=== PATIENT | female | born 1980 | race Caucasian/White ===

== ENCOUNTER 2018-06-28 12:36 | Emergency (ER) | payer BC ==
[2018-06-28] MEDS ORDERED: Sodium Chloride 0.9% 10 ML Syringe FLUSH PRN (13:07)
[2018-06-28] MEDS ORDERED: Sodium Chloride 0.9% 1,000 ML IV ONE (13:07)
[2018-06-28] MEDS ORDERED: Sodium Chloride 0.9% 2.5 ML Syringe FLUSH PRN (13:07)
[2018-06-28] MEDS ORDERED: Ketorolac 30 MG/ML SDV IVPUSH ONE (13:07)
[2018-06-28] MEDS ORDERED: Ondansetron 4 MG/2 ML SDV IVPUSH ONE (13:07)
--- NOTE | 2018-06-28 13:10 | EDM.PDOC ---
ED HPI GENERAL MEDICAL PROBLEM - General Chief Complaint: Back Pain or Injury Stated Complaint: PAIN IN BACK Time Seen by Provider: 06/28/18 12:55 Source of Information: Reports: Patient History Limitations: Reports: No Limitations - History of Present Illness INITIAL COMMENTS - FREE TEXT/NARRATIVE: History of present illness: []Patient has had 3 days of left-sided flank and upper abdominal pain. No fevers , chills, nausea or vomiting. She denies blood in her urine or diarrhea. She also denies being . Patient had similar pain on the opposite side years ago that was a kidney stone but notes the pain was much lower. Has no history of pancreatitis or diverticulitis. Patient has had 3 C-sections in the past. Review of systems: As per history of present illness and below otherwise all systems reviewed and negative. Past medical history: As per history of present illness and as reviewed below otherwise noncontributory. Surgical history: As per history of present illness and as reviewed below otherwise noncontributory. Social history: No reported history of drug or alcohol abuse. Family history: As per history of present illness and as reviewed below otherwise noncontributory. Physical exam: General: Well developed, well nourished in NAD HEENT: Atraumatic, normocephalic, pupils reactive, negative for conjunctival pallor or scleral icterus, mucous membranes moist, throat clear, neck supple, nontender, trachea midline. Lungs: Clear to auscultation, breath sounds equal bilaterally, chest nontender. Heart: S1S2, regular, negative for clicks, rubs, or JVD. Abdomen: NABS, Soft, nondistended, tender left upper quadrant no rebound or guarding. Negative for masses or hepatosplenomegaly. Positive for left costovertebral tenderness. Pelvis: Stable nontender. Genitourinary: Deferred. Rectal: Deferred. Extremities: Atraumatic, negative for cords or calf pain. Neurovascular unremarkable. Neuro: Awake, alert, oriented. Cranial nerves II through XII unremarkable. Cerebellum unremarkable. Motor and sensory unremarkable throughout. Exam nonfocal. Skin:warm and dry Diagnostics: CBC, chemistry, lipase, UA, hCG, CT abdomen pelvis Therapeutics: Duration, Toradol, Zofran ED Course: unremarkable Impression: Abdominal pain Prescriptions: None Plan: Tylenol or Motrin for pain follow-up with primary care return if symptoms worsen or change. Definitive disposition and diagnosis as appropriate pending reevaluation and review of above. 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 ED EXAM, GI/ABD - Physical Exam Exam: See Below (See history of present illness) Course - Vital Signs Last Recorded V/S: Last Vital Signs Temp 97.9 F 06/28/18 12:47 Pulse 83 06/28/18 12:47 Resp 16 06/28/18 12:47 BP 133/89 06/28/18 12:47 Pulse Ox 97 06/28/18 12:47 - Orders/Labs/Meds Orders: Active Orders 24 hr Category Date Time Status Sodium Chloride 0.9% [Saline Flush] Med 06/28/18 13:07 Active 10 ml FLUSH ASDIRECTED PRN Sodium Chloride 0.9% [Saline Flush] Med 06/28/18 13:07 Active 2.5 ml FLUSH ASDIRECTED PRN Saline Lock Insert [OM.PC] Stat Oth 06/28/18 13:06 Ordered Medication Orders Sodium Chloride (Saline Flush) 10 ml FLUSH ASDIRECTED PRN PRN Reason: Keep Vein Open Sodium Chloride (Saline Flush) 2.5 ml FLUSH ASDIRECTED PRN PRN Reason: Keep Vein Open Labs: Laboratory Tests 06/28/18 06/28/18 06/28/18 Range/Units 13:20 13:20 13:32 WBC 11.36 H (4.0-11.0) K/uL RBC 4.86 (4.30-5.90) M/uL Hgb 12.6 (12.0-16.0) g/dL Hct 38.9 (36.0-46.0) % MCV 80.0 (80.0-98.0) fL MCH 25.9 L (27.0-32.0) pg MCHC 32.4 (31.0-37.0) g/dL RDW Std Deviation 42.2 (28.0-62.0) fl RDW Coeff of Viraj 15 (11.0-15.0) % Plt Count 307 (150-400) K/uL MPV 10.00 (7.40-12.00) fL Neut % (Auto) 54.5 (48.0-80.0) % Lymph % (Auto) 30.4 (16.0-40.0) % Love % (Auto) 9.2 (0.0-15.0) % Eos % (Auto) 4.9 (0.0-7.0) % Baso % (Auto) 1.0 (0.0-1.5) % Neut # (Auto) 6.2 H (1.4-5.7) K/uL Lymph # (Auto) 3.5 H (0.6-2.4) K/uL Love # (Auto) 1.1 H (0.0-0.8) K/uL Eos # (Auto) 0.6 (0.0-0.7) K/uL Baso # (Auto) 0.1 (0.0-0.1) K/uL Nucleated RBC % 0.0 /100WBC Nucleated RBCs # 0 K/uL Sodium 137 (136-145) mmol/L Potassium 3.5 (3.5-5.1) mmol/L Chloride 101 (98-107) mmol/L Carbon Dioxide 25.8 (21.0-32.0) mmol/L BUN 10 (7.0-18.0) mg/dL Creatinine 0.6 (0.6-1.0) mg/dL Est Cr Clr Drug Dosing 108.70 mL/min Estimated GFR (MDRD) > 60.0 ml/min Glucose 82 (74-106) mg/dL Calcium 9.1 (8.5-10.1) mg/dL Total Bilirubin 0.3 (0.2-1.0) mg/dL AST 18 (15-37) IU/L ALT 15 (14-63) IU/L Alkaline Phosphatase 62 (46-116) U/L Total Protein 7.9 (6.4-8.2) g/dL Albumin 3.6 (3.4-5.0) g/dL Globulin 4.3 H (2.6-4.0) g/dL Albumin/Globulin Ratio 0.8 L (0.9-1.6) Lipase 158 (73-393) U/L Urine Color YELLOW Urine Appearance SLT CLOUDY Urine pH 6.0 (5.0-8.0) Ur Specific [place] 1.020 (1.001-1.035) Urine Protein NEGATIVE (NEGATIVE) mg/dL Urine Glucose (UA) NEGATIVE (NEGATIVE) mg/dL Urine Ketones 40 H (NEGATIVE) mg/dL Urine Occult Blood TRACE-INTACT H (NEGATIVE) Urine Nitrite NEGATIVE (NEGATIVE) Urine Bilirubin NEGATIVE (NEGATIVE) Urine Urobilinogen 0.2 (<2.0) EU/dL Ur Leukocyte Esterase NEGATIVE (NEGATIVE) Urine RBC 0-2 (0-2/HPF) Urine WBC 2-3 (0-5/HPF) Ur Epithelial Cells MANY (NONE-FEW) Amorphous Sediment LIGHT (NEGATIVE) Urine Bacteria 1+ H (NEGATIVE) Urine Mucus NOT SEEN (NONE-MOD) Urine HCG, Qual (NEGATIVE) 06/28/18 Range/Units 13:32 WBC (4.0-11.0) K/uL RBC (4.30-5.90) M/uL Hgb (12.0-16.0) g/dL Hct (36.0-46.0) % MCV (80.0-98.0) fL MCH (27.0-32.0) pg MCHC (31.0-37.0) g/dL RDW Std Deviation (28.0-62.0) fl RDW Coeff of Viraj (11.0-15.0) % Plt Count (150-400) K/uL MPV (7.40-12.00) fL Neut % (Auto) (48.0-80.0) % Lymph % (Auto) (16.0-40.0) % Love % (Auto) (0.0-15.0) % Eos % (Auto) (0.0-7.0) % Baso % (Auto) (0.0-1.5) % Neut # (Auto) (1.4-5.7) K/uL Lymph # (Auto) (0.6-2.4) K/uL Love # (Auto) (0.0-0.8) K/uL Eos # (Auto) (0.0-0.7) K/uL Baso # (Auto) (0.0-0.1) K/uL Nucleated RBC % /100WBC Nucleated RBCs # K/uL Sodium (136-145) mmol/L Potassium (3.5-5.1) mmol/L Chloride (98-107) mmol/L Carbon Dioxide (21.0-32.0) mmol/L BUN (7.0-18.0) mg/dL Creatinine (0.6-1.0) mg/dL Est Cr Clr Drug Dosing mL/min Estimated GFR (MDRD) ml/min Glucose (74-106) mg/dL Calcium (8.5-10.1) mg/dL Total Bilirubin (0.2-1.0) mg/dL AST (15-37) IU/L ALT (14-63) IU/L Alkaline Phosphatase (46-116) U/L Total Protein (6.4-8.2) g/dL Albumin (3.4-5.0) g/dL Globulin (2.6-4.0) g/dL Albumin/Globulin Ratio (0.9-1.6) Lipase (73-393) U/L Urine Color Urine Appearance Urine pH (5.0-8.0) Ur Specific [place] (1.001-1.035) Urine Protein (NEGATIVE) mg/dL Urine Glucose (UA) (NEGATIVE) mg/dL Urine Ketones (NEGATIVE) mg/dL Urine Occult Blood (NEGATIVE) Urine Nitrite (NEGATIVE) Urine Bilirubin (NEGATIVE) Urine Urobilinogen (<2.0) EU/dL Ur Leukocyte Esterase (NEGATIVE) Urine RBC (0-2/HPF) Urine WBC (0-5/HPF) Ur Epithelial Cells (NONE-FEW) Amorphous Sediment (NEGATIVE) Urine Bacteria (NEGATIVE) Urine Mucus (NONE-MOD) Urine HCG, Qual NEGATIVE (NEGATIVE) Meds: Medications Generic Name Dose Route Start Last Admin Trade Name Freq PRN Reason Stop Dose Admin Sodium Chloride 10 ml 06/28/18 13:07 Saline Flush FLUSH ASDIRECTED PRN Keep Vein Open Sodium Chloride 2.5 ml 06/28/18 13:07 Saline Flush FLUSH ASDIRECTED PRN Keep Vein Open Discontinued Medications Generic Name Dose Route Start Last Admin Trade Name Losq PRN Reason Stop Dose Admin Sodium Chloride 1,000 mls @ 999 mls/hr 06/28/18 13:07 06/28/18 13:26 Normal Saline IV 06/28/18 14:07 999 mls/hr .Bolus ONE Administration Iopamidol 100 ml 06/28/18 14:55 06/28/18 14:56 Isovue Multipack-370 (76%) IVPUSH 06/28/18 14:56 100 ml ONETIME ONE Administration Ketorolac Tromethamine 30 mg 06/28/18 13:07 06/28/18 13:27 Toradol IVPUSH 06/28/18 13:08 30 mg ONETIME ONE Administration Ondansetron HCl 4 mg 06/28/18 13:07 06/28/18 13:27 Zofran IVPUSH 06/28/18 13:08 4 mg ONETIME ONE Administration Departure - Departure Time of Disposition: 15:30 Disposition: Home, Self-Care 01 Condition: Good Clinical Impression: Laceration of vermilion border of upper lip without complication Qualifiers: Encounter type: initial encounter Qualified Code(s): S01.511A - Laceration without foreign body of lip, initial encounter - Discharge Information *PRESCRIPTION DRUG MONITORING PROGRAM REVIEWED*: No *COPY OF PRESCRIPTION DRUG MONITORING REPORT IN PATIENT JASON: No Referrals: PCP,Unknown [Primary Care Provider] - Forms: ED Department Discharge Additional Instructions: The following information is given to patients seen in the emergency department who are being discharged to home. This information is to outline your options for follow-up care. We provide all patients seen in our emergency department with a follow-up referral. The need for follow-up, as well as the timing and circumstances, are variable depending upon the specifics of your emergency department visit. If you don't have a primary care physician on staff, we will provide you with a referral. We always advise you to contact your personal physician following an emergency department visit to inform them of the circumstance of the visit and for follow-up with them and/or the need for any referrals to a consulting specialist. The emergency department will also refer you to a specialist when appropriate. This referral assures that you have the opportunity for follow-up care with a specialist. All of these measure are taken in an effort to provide you with optimal care, which includes your follow-up. Under all circumstances we always encourage you to contact your private physician who remains a resource for coordinating your care. When calling for follow-up care, please make the office aware that this follow-up is from your recent emergency room visit. If for any reason you are refused follow-up, please contact the [facility] Emergency Department at and asked to speak to the emergency department charge nurse. follow up with your primary care physician, return to ER if symptoms worsen or change. [facility] [address] [place] [id number] - My Orders Last 24 Hours: My Active Orders 06/28/18 13:06 Saline Lock Insert [OM.PC] Stat 06/28/18 13:07 Sodium Chloride 0.9% [Saline Flush] 10 ml FLUSH ASDIRECTED PRN Sodium Chloride 0.9% [Saline Flush] 2.5 ml FLUSH ASDIRECTED PRN - Assessment/Plan Last 24 Hours: My Active Orders 06/28/18 13:06 Saline Lock Insert [OM.PC] Stat 06/28/18 13:07 Sodium Chloride 0.9% [Saline Flush] 10 ml FLUSH ASDIRECTED PRN Sodium Chloride 0.9% [Saline Flush] 2.5 ml FLUSH ASDIRECTED PRN
[2018-06-28 14:10] LABS: CHLORIDE,CL 101 mmol/L (98-107); SODIUM,NA 137 mmol/L (136-145)
[2018-06-28] MEDS ORDERED: Iopamidol 755 MG/ML 500 ML Multipack Bottle IVPUSH ONE (14:55)
--- NOTE | 2018-06-28 15:15 | CT ---
CT of the abdomen and pelvis with contrast. HISTORY: Pain TECHNIQUE: Axial CT images were obtained of the abdomen and pelvis following administration of 100 mL of Isovue-370 in the left antecubital fossa without complication. Coronal and sagittal reconstructions obtained. FINDINGS: The lung bases are clear, no pleural effusion. The liver, spleen, adrenal glands, and pancreas appear normal. The gallbladder is normal. There is no bulky retroperitoneal lymphadenopathy or abdominal ascites. The kidneys enhance and function symmetrically without evidence of obstructive uropathy. The large and small bowel are normal in caliber without evidence of obstruction. No focal pericolonic inflammation or stranding. The appendix is grossly normal. Urinary bladder is unremarkable. Uterus and ovaries appear normal in appearance. Minimal free pelvic fluid, likely physiologic. No suspicious osseous abnormalities identified. IMPRESSION: 1. No acute findings noted within the abdomen or pelvis.
== END 2018-06-28 15:40 | disposition home or self-care (01) ==
LOC: MW.ED 12:36
DX: R10.12 Left upper quadrant pain (principal); Z88.1 Allergy status to other antibiotic agents
CPT/HCPCS: 36415; 74177; 80053; 81001; 81025; 83690; 85025; 96361; 96374; 96375; 99284; J1885; J2405; J7040; Q9967; 99283

== ENCOUNTER 2021-06-28 20:12 | Emergency (ER) | payer BC ==
[2021-06-28] MEDS ORDERED: diphenhydrAMINE 50 MG/ML SDV IVPUSH ONE (20:55)
[2021-06-28] MEDS ORDERED: Sodium Chloride 0.9% 2.5 ML Syringe FLUSH PRN (20:55)
[2021-06-28] MEDS ORDERED: Sodium Chloride 0.9% 10 ML Syringe FLUSH PRN (20:55)
[2021-06-28] MEDS ORDERED: Ketorolac 30 MG/ML SDV IVPUSH ONE (20:55)
[2021-06-28] MEDS ORDERED: Metoclopramide 10 MG/2 ML SDV IM ONE (20:55)
== END 2021-06-28 22:19 | disposition home or self-care (01) ==
LOC: MW.ED 20:12
DX: G43.909 Migraine, unspecified, not intractable, without status migrainosus (principal); Z88.0 Allergy status to penicillin
CPT/HCPCS: 70450; 70450-26; 96372; 96374; 96375; 99282; 99283-25; J1200; J1885; J2765